=== PATIENT | female | born 1975 | race Caucasian/White ===

== ENCOUNTER 2024-03-21 10:15 | Emergency (ER) | payer OTHER ==
[~2024-03-21] VITALS: Ht 162.6 cm; Wt 54.9 kg
[2024-03-21 10:26] VITALS: O2SAT 96
[2024-03-21] MEDS: ACETAMINOPHEN 325 MG TAB PO ONE (11:18)
[2024-03-21 11:30] VITALS: BP 134/92; TEMP 98.8
[2024-03-21] MEDS ORDERED: CEFD1CAP9 PO (12:40)
[2024-03-21] MEDS ORDERED: CETI10CH PO (12:40)
== END 2024-03-21 12:48 | disposition home or self-care (01) ==
LOC: M ED 10:15
DX: H66.92 Otitis media, unspecified, left ear (principal); J00 Acute nasopharyngitis [common cold]; J30.9 Allergic rhinitis, unspecified; M32.9 Systemic lupus erythematosus, unspecified; I73.00 Raynaud's syndrome without gangrene; M79.7 Fibromyalgia; Z88.1 Allergy status to other antibiotic agents; Z11.52 Encounter for screening for COVID-19

== ENCOUNTER → 2024-09-24 | Outpatient (CLI) | payer OTHER ==
[~2024-09-24] MED LIST: AZAT50TA37 PO; CEFD1CAP9 PO; CETI10CH PO; FAMO1TAB11 PO; FERR325T3 PO; FOLI1TAB11 PO; HYDR200T46 PO; LEVO50TA5 PO; MIRA3350 PO; OMEP40CA5 PO
== END ==
LOC: M RAD 09:45
PROVIDERS: ATTEND Registered Nurse
DX: R05.9 Cough, unspecified (principal)

== ENCOUNTER → 2024-11-11 | Outpatient (REF) | payer OTHER ==
[2024-11-11 15:44] LABS: APPEARANCE, URINE CLEAR (CLEAR); BACTERIA, URINE AUTO NEGATIVE (NEGATIVE); BILIRUBIN, URINE AUTO NEGATIVE (NEGATIVE); BLOOD, URINE BLOOD 2+ (NEGATIVE); GLUCOSE, URINE (UA) AUTO NEGATIVE (NEGATIVE); KETONE, URINE AUTO NEGATIVE (NEGATIVE); LEUKOCYTE ESTERASE, URINE AUTO NEGATIVE (NEGATIVE); NITRITE, URINE AUTO NEGATIVE (NEGATIVE); PROTEIN, URINE AUTO NEGATIVE (NEGATIVE); RBC, URINE AUTO 4 /HPF (0-3); SPECIFIC GRAVITY URINE AUTO 1.012 (1.002-1.035); SQUAMOUS EPITHELIAL CELL UR AU 0 /HPF (0-6); TRANSITIONAL EPITHELIAL AUTO <1 /HPF; UROBILINOGEN, URINE AUTO 0.2 mg/dL (0.0-2.0); WBC, URINE AUTO 0 /HPF (0-3)
[2024-11-11 15:46] LABS: BASO # 0.0 10^3/uL (0.0-0.2); BASO % 1.2 % (0.0-1.0); EOS # 0.0 10^3/uL (0.0-0.5); EOS % 0.4 % (0.0-3.0); LDH LACTATE DEHYDROGENASE 188 U/L (120-246); LYMPH # 0.3 10^3/uL (1.5-5.0); LYMPH % 10.0 % (24.0-44.0); MONO # 0.3 10^3/uL (0.0-0.8); MONO % 12.7 % (2.0-8.0); NEUTROPHILS # 1.9 10^3/uL (1.5-8.5); NEUTROPHILS % 74.5 % (36.0-66.0); PLATELET COUNT, AUTOMATED 358 10^3/uL (150-450)
[2024-11-11 15:47] LABS: C REACTIVE PROTEIN QUANTITATIV < 0.50 MG/DL (<1.0)
[2024-11-11 15:48] LABS: ALT/SGPT 42 U/L (7.0-40); AST/SGOT 38 U/L (<34); CALCIUM LEVEL 9.8 MG/DL (8.5-10.1); CARBON DIOXIDE LEVEL 27 MMOL/L (20-31); CHLORIDE LEVEL 104 MMOL/L (98-107); COMPLEMENT C4 15.8 MG/DL (12-36); CPK CREATINE PHOSPHOKINASE 101 U/L (34-145); CREATININE FOR GFR 0.80 MG/DL (0.55-1.30); GLOMERULAR FILTRATION RATE > 90.0 (>58); POTASSIUM SERUM 4.4 MMOL/L (3.5-5.1); SODIUM LEVEL 142 MMOL/L (136-145)
[2024-11-11 15:55] LABS: ERYTHROCYTE SEDIMENTATION RATE 40 mm/hr (0-20)
[2024-11-11 16:07] LABS: TOTAL PROTEIN,RANDOM URINE 17.3 MG/DL (0.0-14.0)
[2024-11-12 15:58] LABS: CRYOGLOBULINS NEGATIVE (NEGATIVE)
[2024-11-13 08:52] LABS: PROTEIN, TOTAL SO 9.1 g/dL (6.1-8.1)
[2024-11-14 06:38] LABS: ALBUMIN SO 4.5 g/dL (3.8-4.8); ALPHA 1 GLOBULINS SO 0.3 g/dL (0.2-0.3); ALPHA 2 GLOBULINS SO 0.7 g/dL (0.5-0.9); BETA 2 GLOBULIN SO 0.4 g/dL (0.2-0.5); BETA GLOBULIN SO 0.5 g/dL (0.4-0.6); GAMMA GLOBULINS SO 2.7 g/dL (0.8-1.7)
[2024-11-14 15:53] LABS: ALDOLASE 4.1 U/L (< OR = 8.1)
[2024-11-15 19:38] LABS: COMPLEMENT TOTAL (CH50) 35 U/mL (31-60)
[2024-11-16 00:43] LABS: PTT-LA 39 sec (<=40)
== END ==
LOC: M SFHCRHEU 09:48
PROVIDERS: ATTEND Internal Medicine Rheumatology
DX: R76.8 Other specified abnormal immunological findings in serum (principal); I73.00 Raynaud's syndrome without gangrene; R52 Pain, unspecified; M35.00 Sjogren syndrome, unspecified; K59.09 Other constipation; L65.9 Nonscarring hair loss, unspecified; R05.3 Chronic cough; I78.1 Nevus, non-neoplastic

== ENCOUNTER → 2024-11-14 | Outpatient (CLI) | payer OTHER ==
[2024-11-14 16:04] LABS: BASO # 0.0 10^3/uL (0.0-0.2); BASO % 0.8 % (0.0-1.0); EOS # 0.0 10^3/uL (0.0-0.5); EOS % 0.8 % (0.0-3.0); LYMPH # 0.5 10^3/uL (1.5-5.0); LYMPH % 12.8 % (24.0-44.0); MONO # 0.4 10^3/uL (0.0-0.8); MONO % 10.2 % (2.0-8.0); NEUTROPHILS # 2.9 10^3/uL (1.5-8.5); NEUTROPHILS % 75.1 % (36.0-66.0); PLATELET COUNT, AUTOMATED 266 10^3/uL (150-450)
[2024-11-14 17:09] LABS: CREATININE FOR GFR 0.84 MG/DL (0.55-1.30); GLOMERULAR FILTRATION RATE 85.1 (>58)
[2024-11-14 17:10] LABS: ALT/SGPT 38 U/L (7.0-40); AST/SGOT 40 U/L (<34); CALCIUM LEVEL 9.8 MG/DL (8.5-10.1); CARBON DIOXIDE LEVEL 27.0 MMOL/L (20-31); CHLORIDE LEVEL 106 MMOL/L (98-107); CHOLESTEROL LEVEL 165 MG/DL (<200); POTASSIUM SERUM 4.4 MMOL/L (3.5-5.1); SODIUM LEVEL 142 MMOL/L (136-145); TRIGLYCERIDES LEVEL 69 MG/DL (<150)
[2024-11-14 17:11] LABS: CHOLESTEROL RISK RATIO 2.91 (<5); LDL CHOLESTEROL 94.5 MG/DL (<100); MAGNESIUM LEVEL 1.9 MG/DL (1.8-2.4); NON-HDL-C 108.3 MG/DL; VITAMIN B12 LEVEL 737 PG/ML (211-911)
[2024-11-18 05:27] LABS: RUBEOLA IgG ANTIBODY 49.3 AU/mL (>16.49)
== END ==
LOC: M LAB 15:20
PROVIDERS: ATTEND Registered Nurse
DX: Z02.1 Encounter for pre-employment examination (principal); E03.9 Hypothyroidism, unspecified; R76.0 Raised antibody titer; R11.2 Nausea with vomiting, unspecified; G62.9 Polyneuropathy, unspecified; D69.6 Thrombocytopenia, unspecified; Z13.220 Encounter for screening for lipoid disorders; Z11.1 Encounter for screening for respiratory tuberculosis

== ENCOUNTER → 2024-11-14 | Outpatient (CLI) | payer OTHER | LOC: M LAB 15:16 | PROVIDERS: ATTEND Registered Nurse | DX: Z53.9 Procedure and treatment not carried out, unspecified reason (principal) ==

== ENCOUNTER → 2024-11-27 | Outpatient (CLI) | payer OTHER | LOC: M RAD 10:14 | PROVIDERS: ATTEND Internal Medicine Rheumatology | DX: R76.8 Other specified abnormal immunological findings in serum (principal); I73.00 Raynaud's syndrome without gangrene; R52 Pain, unspecified; M35.00 Sjogren syndrome, unspecified; K59.09 Other constipation; L65.9 Nonscarring hair loss, unspecified; R05.3 Chronic cough; I78.1 Nevus, non-neoplastic; J98.4 Other disorders of lung; K44.9 Diaphragmatic hernia without obstruction or gangrene; R59.0 Localized enlarged lymph nodes ==

== ENCOUNTER → 2024-12-02 | Outpatient (CLI) | payer OTHER | LOC: M CARPUL 08:15 | PROVIDERS: ATTEND Internal Medicine Rheumatology | DX: R76.8 Other specified abnormal immunological findings in serum (principal) ==

== ENCOUNTER → 2024-12-11 | Outpatient (CLI) | payer OTHER ==
[2024-12-11 18:25] LABS: BASO # 0.0 10^3/uL (0.0-0.2); BASO % 0.5 % (0.0-1.0); EOS # 0.1 10^3/uL (0.0-0.5); EOS % 1.2 % (0.0-3.0); LYMPH # 0.8 10^3/uL (1.5-5.0); LYMPH % 13.3 % (24.0-44.0); MONO # 0.8 10^3/uL (0.0-0.8); MONO % 14.0 % (2.0-8.0); NEUTROPHILS # 4.0 10^3/uL (1.5-8.5); NEUTROPHILS % 70.5 % (36.0-66.0); PLATELET COUNT, AUTOMATED 359 10^3/uL (150-450)
== END ==
LOC: M RAD 17:13
PROVIDERS: ATTEND Internal Medicine Rheumatology
DX: R76.8 Other specified abnormal immunological findings in serum (principal); I73.00 Raynaud's syndrome without gangrene; R52 Pain, unspecified; M35.00 Sjogren syndrome, unspecified; K59.09 Other constipation; L65.9 Nonscarring hair loss, unspecified; I78.1 Nevus, non-neoplastic; M20.11 Hallux valgus (acquired), right foot; M20.12 Hallux valgus (acquired), left foot

== ENCOUNTER → 2024-12-15 | Outpatient (CLI) | payer OTHER | LOC: M RAD 07:16 | PROVIDERS: ATTEND Registered Nurse | DX: R74.01 Elevation of levels of liver transaminase levels (principal) ==

== ENCOUNTER → 2025-01-14 | Outpatient (CLI) | payer OTHER | LOC: M PLAIMG 12:11 | PROVIDERS: ATTEND Internal Medicine Rheumatology | DX: R76.89 Other specified abnormal immunological findings in serum (principal); I73.00 Raynaud's syndrome without gangrene; R52 Pain, unspecified; M35.00 Sjogren syndrome, unspecified; K59.09 Other constipation; L65.9 Nonscarring hair loss, unspecified; R05.3 Chronic cough; I78.1 Nevus, non-neoplastic ==